=== PATIENT | male | born 1990 | race Caucasian/White ===

== ENCOUNTER 2017-01-25 22:25 | Emergency (ER) | payer OTHER ==
[~2017-01-25] VITALS: Ht 185.4 cm; Wt 89.6 kg
[2017-01-25] MEDS ORDERED: NARCAN4 MG NS (23:16)
[2017-01-25 23:34] VITALS: BP 126/71
== END 2017-01-25 23:37 | disposition home or self-care (01) ==
LOC: EME → EDBD 22:25 → EME 23:37
DX: T40.1X1A Poisoning by heroin, accidental (unintentional), initial encounter (principal); F17.200 Nicotine dependence, unspecified, uncomplicated; Z88.6 Allergy status to analgesic agent
CPT/HCPCS: 99281; 99285; J2310

== ENCOUNTER 2017-02-21 19:37 | Emergency (ER) | payer OTHER ==
[~2017-02-21] VITALS: Ht 185.4 cm; Wt 86.4 kg
[~2017-02-21 19:37] MED LIST: NARCAN4 MG NS
[2017-02-21 20:31] LABS: MCH 30.5 PG (29.0-34.0); MCHC 35.3 G/DL (30.0-36.0); MCV 86.4 FL (86-99); MEAN PLAT.VOLUME 9.7 uM^3 (9.0-12.4); PLATELET COUNT 234 K/uL (156-360); RBC DIS.WIDTH-CV 11.7 % (11.8-14.6); RBC DIS.WIDTH-SD 37.1 % (39-53); RED BLOOD COUNT 5.21 M/uL (4.00-5.50); WHITE BLOOD COUNT 12.1 K/uL (4.1-10.2)
[2017-02-21 20:40] LABS: CHLORIDE 102 mEq/L (99-109); POTASSIUM 4.3 mEq/L (3.7-5.4); SODIUM 137 mEq/L (136-147)
[2017-02-21 20:41] LABS: GLUCOSE 90 mg/dL (70-99)
[2017-02-21 20:43] LABS: ANION GAP 11 MEQ/L (2-14)
[2017-02-21 20:45] LABS: GFR ESTIMATE (CALCULATED) > 59 mL/min/
[2017-02-21 20:46] LABS: UREA NITROGEN (BUN) 14 mg/dL (9-23)
[2017-02-21 20:52] LABS: TROP-I INTERPRETATION NEGATIVE; TROPONIN-I < 0.01 ng/mL (0.0-0.30)
[2017-02-21] MEDS ORDERED: ATARAX,VISTARIL50 MG PO (21:35)
[2017-02-21 21:51] VITALS: BP 137/77
== END 2017-02-21 21:52 | disposition home or self-care (01) ==
LOC: EME 19:37 → RME 19:37
DX: R07.9 Chest pain, unspecified (principal); F41.9 Anxiety disorder, unspecified; F17.200 Nicotine dependence, unspecified, uncomplicated
CPT/HCPCS: 71020; 80048; 84484; 85027; 93005; 99281; 99284

== ENCOUNTER 2017-03-15 14:48 | Emergency (ER) | payer OTHER ==
[~2017-03-15] VITALS: Ht 185.4 cm; Wt 85.3 kg
[~2017-03-15 14:48] MED LIST changes: +ATARAX,VISTARIL50 MG PO
[2017-03-15 16:22] LABS: ADD MIUA? YES; BILIRUBIN NEGATIVE; BLOOD SMALL; COLOR YELLOW ((YELLOW)); GLUCOSE (STRIP) NEGATIVE; KETONES NEGATIVE; LEUKOCYTES LARGE; NITRITE NEGATIVE; PROTEIN (STRIP) NEGATIVE; SPECIFIC GRAVITY 1.016 (1.000-1.030)
[2017-03-15 16:39] LABS: BACTERIA NONE SEEN /HPF; EPITHELIAL CELLS NONE SEEN /HPF; MUCUS NONE SEEN /LPF; RED BLOOD CELLS TNTC /HPF (0-5); WHITE BLOOD CELLS TNTC /HPF (0-5)
[2017-03-15 17:12] VITALS: BP 119/76
== END 2017-03-15 17:18 | disposition home or self-care (01) ==
LOC: EME 14:48
DX: N34.2 Other urethritis (principal); F32.9 Major depressive disorder, single episode, unspecified; F43.10 Post-traumatic stress disorder, unspecified; F41.9 Anxiety disorder, unspecified; F17.200 Nicotine dependence, unspecified, uncomplicated
CPT/HCPCS: 81003; 99281; 99284; J0696

== ENCOUNTER 2017-03-28 19:33 | Emergency (ER) | payer OTHER ==
[~2017-03-28] VITALS: Ht 167.6 cm; Wt 83.0 kg
[2017-03-28 21:47] LABS: BASOPHIL COUNT 0.1 K/uL (0-0.1); EOSINOPHIL (%) 0.6 % (0-5); EOSINOPHIL COUNT 0.1 K/uL (0-0.3); HEMATOCRIT 42.5 % (38.0-50.0); IMMATURE GRANULOCYTE (%) 0.4 % (0.0-0.7); IMMATURE GRANULOCYTE COUNT 0.1 K/uL; INSTRUMENT ABS NEUTROPHIL CT 15.3 K/uL; LYMPHOCYTE COUNT 3.2 K/uL (1.0-2.8); MCH 29.6 PG (29.0-34.0); MCHC 34.4 G/DL (30.0-36.0); MCV 86.2 FL (86-99); MEAN PLAT.VOLUME 9.9 uM^3 (9.0-12.4); MONOCYTE (%) 5.3 % (3-12); MONOCYTE COUNT 1.1 K/uL (0-0.8); NEUTROPHIL (%) 77.3 % (45-76); NEUTROPHIL COUNT 15.3 K/uL (1.8-6.4); PLATELET COUNT 235 K/uL (156-360); RBC DIS.WIDTH-CV 11.9 % (11.8-14.6); RBC DIS.WIDTH-SD 37.5 % (39-53); RED BLOOD COUNT 4.93 M/uL (4.00-5.50); WHITE BLOOD COUNT 19.7 K/uL (4.1-10.2)
[2017-03-28 21:54] LABS: CHLORIDE 108 mEq/L (99-109); POTASSIUM 4.2 mEq/L (3.7-5.4); SODIUM 141 mEq/L (136-147)
[2017-03-28 21:56] LABS: GLUCOSE 88 mg/dL (70-99)
[2017-03-28 21:57] LABS: ANION GAP 10 MEQ/L (2-14)
[2017-03-28 21:58] LABS: TOTAL BILIRUBIN 0.4 mg/dL (0.0-1.0)
[2017-03-28 21:59] LABS: SERUM ETHYL ALCOHOL < 10 mg/dL
[2017-03-28 22:00] LABS: ALKALINE PHOSPHATASE 89 IU/L (3-129); GFR ESTIMATE (CALCULATED) > 59 mL/min/
[2017-03-28 22:02] LABS: UREA NITROGEN (BUN) 9 mg/dL (9-23)
[2017-03-28 22:03] LABS: SALICYLATE < 5.0 MG/DL (15-30)
[2017-03-29] MEDS ORDERED: TYLENOL REGULA325 MG PO (00:21)
[2017-03-29 02:00] VITALS: BP 111/70
[2017-03-29] MEDS ORDERED: NARCAN4 MG NS (02:30)
== END 2017-03-29 02:48 | disposition left against medical advice (07) ==
LOC: EME 19:33 → EDOF 03-29 02:19 → ENRESERV 03-29 02:22 → CANRESERV 03-29 02:22 → EME 03-29 02:48
PROVIDERS: Emergency Medicine
DX: T40.1X1A Poisoning by heroin, accidental (unintentional), initial encounter (principal); F11.20 Opioid dependence, uncomplicated; F32.9 Major depressive disorder, single episode, unspecified; F43.10 Post-traumatic stress disorder, unspecified; F17.200 Nicotine dependence, unspecified, uncomplicated; Z53.20 Procedure and treatment not carried out because of patient's decision for unspecified reasons
CPT/HCPCS: 70450; 80053; 81003; 85025; 99281; 99285; G0480; J2060; J2310; J7030; J7040

== ENCOUNTER 2017-06-05 17:03 | Emergency (ER) | payer OTHER ==
[~2017-06-05] VITALS: Ht 167.6 cm; Wt 83.0 kg
[~2017-06-05 17:03] MED LIST changes: +TYLENOL REGULA325 MG PO
[2017-06-05] MEDS ORDERED: NARCAN4 MG NS (18:48)
[2017-06-05 19:34] VITALS: BP 108/65
== END 2017-06-05 19:35 | disposition home or self-care (01) ==
LOC: EME 17:03
DX: T40.1X1A Poisoning by heroin, accidental (unintentional), initial encounter (principal); R09.02 Hypoxemia; F11.10 Opioid abuse, uncomplicated; F17.200 Nicotine dependence, unspecified, uncomplicated
CPT/HCPCS: 99281; 99284; J2310